=== PATIENT | female | born 1975 | race Caucasian/White ===

== ENCOUNTER → 2019-11-20 12:32 | Outpatient (BNVA) | payer OTHER, SELFPAY | PROVIDERS: Family Provider Family Medicine; PCP Family Medicine; Visit Provider Family Medicine | DX: R05 Cough (principal); R06.02 Shortness of breath; Z20.828 Contact with and (suspected) exposure to other viral communicable diseases | CPT/HCPCS: 87071; 87400; 87635; 87880 ==

== ENCOUNTER → 2020-03-09 13:26 | Outpatient (BNVA) | payer SELFPAY | PROVIDERS: Family Provider Family Medicine; PCP Family Medicine; Visit Provider Internal Medicine | DX: R50.9 Fever, unspecified (principal) | CPT/HCPCS: 87635 ==

== ENCOUNTER 2021-07-15 14:47 | Outpatient (CLI) | payer SELFPAY ==
--- NOTE | 2021-07-15 14:58 | XR_ITS ---
WS: [id number] LEFT KNEE: 2 VIEW(S) TECHNIQUE: AP and lateral. HISTORY: ACUTE PAIN OF LEFT KNEE COMPARISON: 11/20/2012 No fracture or dislocation. Mild narrowing of the patellofemoral joint space in the medial compartment and small osteophytes. Fra gmentation of the tibial tubercle is stable. No adjacent soft tissue edema. Small suprapatellar effusion. No soft tissue abnormality. XR/XR knee LT 1-2V [id number] IMPRESSION: 1. Mild osteoarthritis in the medial and patellofemoral compartments. 2. Small suprapatellar joint effusion.
== END 2021-07-15 14:48 | disposition home or self-care (01) ==
PROVIDERS: PCP Family Medicine; Visit Provider Family Medicine
DX: M17.12 Unilateral primary osteoarthritis, left knee (principal); M25.462 Effusion, left knee
CPT/HCPCS: 73560

== ENCOUNTER → 2021-08-12 10:41 | Outpatient (BNVA) | payer SELFPAY | PROVIDERS: PCP Family Medicine; Visit Provider Nurse Practitioner Family | DX: Z20.822 Contact with and (suspected) exposure to COVID-19 (principal) | CPT/HCPCS: 87635 ==

== ENCOUNTER → 2021-09-10 10:18 | Outpatient (BNVA) | payer SELFPAY | PROVIDERS: PCP Family Medicine; Visit Provider Nurse Practitioner Family | DX: Z20.822 Contact with and (suspected) exposure to COVID-19 (principal) | CPT/HCPCS: 87635 ==

== ENCOUNTER → 2021-09-21 09:58 | Outpatient (BNVA) | payer SELFPAY | PROVIDERS: PCP Family Medicine; Visit Provider Nurse Practitioner Family | DX: Z20.822 Contact with and (suspected) exposure to COVID-19 (principal) | CPT/HCPCS: 87635 ==

== ENCOUNTER → 2022-08-11 10:07 | Outpatient (BNVA) | payer MEDICAID, SELFPAY | PROVIDERS: PCP Family Medicine; Visit Provider Podiatrist Foot & Ankle Surgery | DX: E11.42 Type 2 diabetes mellitus with diabetic polyneuropathy (principal) | CPT/HCPCS: 36415; 83036 ==

== ENCOUNTER 2023-06-19 08:02 | Outpatient (CLI) | payer MEDICAID, SELFPAY ==
[2023-06-19 08:51] LABS: Alkaline Phosphatase 133 U/L (35-105); Anion Gap 11.1 (5-19); Aspartate Amino Transferase 24 U/L (0-32); Blood Urea Nitrogen 15 mg/dL (6-20); Calcium 8.8 mg/dL (8.5-10.5); Carbon Dioxide 31 mmol/L (22-29); Chloride 104 mmol/L (98-107); Free T4 Free Thyroxine 0.84 ng/dL (0.82-1.77); Globulin 2.7 g/dL (1.3-4.6); Glomerular Filtration Rate 89.7 mL/min (90-130); Glucose 102 mg/dL (65-115); Osmolality Calculated 295 mOsm/kg (285-295); Potassium 4.1 mmol/L (3.5-5.1); Sodium 142 mmol/L (136-145); T3 Free 3.1 PG/ML (2.0-4.4); Thyroid Stimulating Hormone 2.05 uIU/mL (0.27-4.20); Total Bilirubin 0.3 mg/dL (0.15-1.2); Total Protein 6.7 g/dL (6.6-8.7)
[2023-06-19 09:02] LABS: Alanine Aminotransferase 23 U/L (0-33)
[2023-06-19 10:45] LABS: 25 Hydroxy Vitamin D 16 ng/mL (30-100); Vitamin B12 331 pg/mL (232-1245)
[2023-06-19 10:46] LABS: Folate Level 6.8 ng/mL (4.8-37.3)
[2023-06-22 08:43] LABS: Methylmalonic Acid 540 nmol/L (87-318)
[2023-06-22 11:40] LABS: Carbamazepine Free 0.4 mcg/mL (1.0-3.0)
== END 2023-06-19 08:03 | disposition home or self-care (01) ==
PROVIDERS: PCP Family Medicine; Visit Provider Psychiatry & Neurology Neurology
DX: R56.9 Unspecified convulsions (principal)
CPT/HCPCS: 36415; 80053; 80157; 82306; 82607; 82746; 83735; 83921; 84439; 84443; 84481

== ENCOUNTER 2023-07-19 12:46 | Oncology outpatient (recurring) (ONCR) | payer MEDICAID, SELFPAY ==
[2023-07-19 14:20] LABS: Basophils % 0.3 %; Eosinophils # 0.2 10^3/uL (0.0-0.8); Eosinophils % 3.4 %; Hematocrit 40.3 % (36-47); Lymphocytes # 2.3 10^3/uL (0.8-4.8); Mean Corpuscular HGB Conc 31.3 g/dL (30-55); Mean Corpuscular Hemoglobin 27.3 pg (27-33); Mean Corpuscular Volume 87.2 fl (85-98); Mean Platelet Volume 10.2 fL (7.4-10.4); Monocytes # 0.4 10^3/uL (0.2-0.9); Monocytes % 5.8 %; Neutrophils # 3.82 10^3/uL (1.8-7.7); Neutrophils % 56.4 %; Nucleated Red Blood Cells % 0 %; Platelet Count 260 10^3/cmm (157-399); Red Blood Count 4.62 10^6/uL (3.85-5.65); Red Cell Distribution Width 16.2 % (12.1-15.1); White Blood Count 6.77 10^3/uL (3.29-11.43)
[2023-07-19 14:33] LABS: Alanine Aminotransferase 20 U/L (0-33); Albumin Level 3.7 g/dL (3.5-5.2); Alkaline Phosphatase 132 U/L (35-105); Anion Gap 14.1 (5-19); Aspartate Amino Transferase 19 U/L (0-32); Blood Urea Nitrogen 14 mg/dL (6-20); Calcium 8.6 mg/dL (8.5-10.5); Carbon Dioxide 28 mmol/L (22-29); Chloride 103 mmol/L (98-107); Ferritin 32 ng/mL (15-150); Globulin 2.8 g/dL (1.3-4.6); Glomerular Filtration Rate 89.7 mL/min (90-130); Glucose 82 mg/dL (65-115); Homocysteine 10.47; Iron 97 ug/dL (37-145); Osmolality Calculated 292 mOsm/kg (285-295); Percent Saturation 31.3 % (20-50); Potassium 4.1 mmol/L (3.5-5.1); Sodium 141 mmol/L (136-145); Total Bilirubin 0.2 mg/dL (0.15-1.2); Total Iron Binding Capacity 309 mcg/dl; Total Protein 6.5 g/dL (6.6-8.7); Unsaturated Iron Binding 212 ug/dL (112-347)
[2023-07-19 14:49] LABS: Vitamin B12 347 pg/mL (232-1245)
[2023-07-19 14:55] LABS: Folate Level 6.8 ng/mL (4.8-37.3)
[2023-07-22 07:40] LABS: Methylmalonic Acid 339 nmol/L (87-318)
== END 2023-08-13 23:59 | disposition home or self-care (01) ==
PROVIDERS: Internal Medicine Hematology & Oncology; PCP Family Medicine; Visit Provider Family Medicine
DX: D50.9 Iron deficiency anemia, unspecified (principal); E53.8 Deficiency of other specified B group vitamins; R56.9 Unspecified convulsions; E66.9 Obesity, unspecified; E11.9 Type 2 diabetes mellitus without complications; Z79.899 Other long term (current) drug therapy
CPT/HCPCS: 36415; 80053; 82607; 82728; 82746; 83090; 83540; 83550; 83921; 85025

== ENCOUNTER 2023-09-11 14:28 | Oncology outpatient (recurring) (ONCR) | payer MEDICAID, SELFPAY ==
[2023-09-11 15:47] LABS: Basophils % 0.2 %; Eosinophils # 0.2 10^3/uL (0.0-0.8); Eosinophils % 2.6 %; Hematocrit 38.8 % (36-47); Lymphocytes # 2.1 10^3/uL (0.8-4.8); Lymphocytes % 36.6 %; Mean Corpuscular HGB Conc 32.5 g/dL (30-55); Mean Corpuscular Hemoglobin 28.7 pg (27-33); Mean Corpuscular Volume 88.4 fl (85-98); Mean Platelet Volume 9.8 fL (7.4-10.4); Monocytes # 0.3 10^3/uL (0.2-0.9); Monocytes % 5.8 %; Neutrophils % 54.6 %; Nucleated Red Blood Cells % 0 %; Platelet Count 273 10^3/cmm (157-399); Red Blood Count 4.39 10^6/uL (3.85-5.65); Red Cell Distribution Width 13.2 % (12.1-15.1); White Blood Count 5.85 10^3/uL (3.29-11.43)
[2023-09-11 16:36] LABS: Alanine Aminotransferase 24 U/L (0-33); Albumin Level 3.8 g/dL (3.5-5.2); Alkaline Phosphatase 102 U/L (35-105); Anion Gap 11.8 (5-19); Aspartate Amino Transferase 21 U/L (0-32); Blood Urea Nitrogen 14 mg/dL (6-20); Calcium 8.9 mg/dL (8.5-10.5); Carbon Dioxide 29 mmol/L (22-29); Chloride 104 mmol/L (98-107); Glomerular Filtration Rate 107.2 mL/min (90-130); Glucose 81 mg/dL (65-115); Osmolality Calculated 292 mOsm/kg (285-295); Potassium 3.8 mmol/L (3.5-5.1); Sodium 141 mmol/L (136-145); Total Bilirubin 0.2 mg/dL (0.15-1.2); Total Protein 6.8 g/dL (6.6-8.7)
[2023-09-11 16:47] LABS: 25 Hydroxy Vitamin D 42 ng/mL (30-100)
[2023-09-14 04:00] LABS: Parietal Cell Antibody NEGATIVE (NEGATIVE)
[2023-09-15 16:00] LABS: Intrinsic Factor Blocking AB NEGATIVE
== END 2023-09-13 23:59 | disposition home or self-care (01) ==
PROVIDERS: Nurse Practitioner Family; PCP Family Medicine; Visit Provider Family Medicine
DX: E55.9 Vitamin D deficiency, unspecified (principal); I10 Essential (primary) hypertension; E53.8 Deficiency of other specified B group vitamins
CPT/HCPCS: 36415; 80053; 82306; 85025; 86255; 86340

== ENCOUNTER 2023-09-14 09:11 | Outpatient (CLI) | payer MEDICAID, SELFPAY ==
--- NOTE | 2023-09-14 09:27 | MM_ITS ---
WS: [id number] BILATERAL 3D TOMOSYNTHESIS DIGITAL DIAGNOSTIC MAMMOGRAPHY WITH CAD CLINICAL INFORMATION: BR MASS HISTORY: Bilateral breast pain. ExtraExtra sore COMPARISON: 2009 TECHNIQUE: Bilateral CC, MLO, and ML views. FINDINGS: Scattered fibroglandular densities bilaterally. No suspicious abnormalities in the areas of palpable concern. Ultrasound is pending. A few tiny incidental punctate calcifications. ULTRASOUND BREAST BILATERAL TECHNIQUE: Ultrasound bilateral breast focused area of concern. CLINICAL INFORMATION: BR MASS COMPARISON: None. FINDINGS: Ultrasound bilateral breast all 4 quadrants and areas of concern. RIGHT BREAST: No suspicious abnormalities in the RIGHT breast in the areas of concern. LEFT BREAST: No suspicious abnormalities in the LEFT breast in the areas of concern. IMPRESSION: MM/[place] [id number] BI-RADS: 2-Benign FOLLOW UP: 1 Year Follow-up Recommend return to annual screening mammography.
--- NOTE | 2023-09-14 10:26 | US_ITS ---
WS: [id number] BILATERAL 3D TOMOSYNTHESIS DIGITAL DIAGNOSTIC MAMMOGRAPHY WITH CAD CLINICAL INFORMATION: BR MASS HISTORY: Bilateral breast pain. ExtraExtra sore COMPARISON: 2009 TECHNIQUE: Bilateral CC, MLO, and ML views. FINDINGS: Scattered fibroglandular densities bilaterally. No suspicious abnormalities in the areas of palpable concern. Ultrasound is pending. A few tiny incidental punctate calcifications. ULTRASOUND BREAST BILATERAL TECHNIQUE: Ultrasound bilateral breast focused area of concern. CLINICAL INFORMATION: BR MASS COMPARISON: None. FINDINGS: Ultrasound bilateral breast all 4 quadrants and areas of concern. RIGHT BREAST: No suspicious abnormalities in the RIGHT breast in the areas of concern. LEFT BREAST: No suspicious abnormalities in the LEFT breast in the areas of concern. IMPRESSION: US/US breast BI limited* [id number] BI-RADS: 2-Benign FOLLOW UP: 1 Year Follow-up Recommend return to annual screening mammography.
== END 2023-09-14 09:12 | disposition home or self-care (01) ==
LOC: RAD 09:11
PROVIDERS: PCP Family Medicine; Visit Provider Family Medicine
DX: N63.20 Unspecified lump in the left breast, unspecified quadrant (principal); N64.4 Mastodynia; R92.323 Mammographic fibroglandular density, bilateral breasts
CPT/HCPCS: 76642; 77062; G0279

== ENCOUNTER → 2023-11-29 16:13 | Outpatient (BNVA) | payer MEDICAID, SELFPAY | PROVIDERS: PCP Family Medicine; Visit Provider Nurse Practitioner | DX: J02.9 Acute pharyngitis, unspecified (principal) | CPT/HCPCS: 87071; 87880 ==

== ENCOUNTER → 2024-01-22 14:30 | Outpatient (BNVA) | payer MEDICAID, SELFPAY | PROVIDERS: PCP Family Medicine; Visit Provider Registered Nurse Neonatal Intensive Care | DX: J02.9 Acute pharyngitis, unspecified (principal); R50.9 Fever, unspecified; J06.9 Acute upper respiratory infection, unspecified; H66.002 Acute suppurative otitis media without spontaneous rupture of ear drum, left ear; N89.8 Other specified noninflammatory disorders of vagina | CPT/HCPCS: 87426; 87880 ==

== ENCOUNTER 2024-12-25 13:14 | Emergency (ER) | payer MEDICAID, SELFPAY ==
[2024-12-25 13:26] VITALS: BP 176/102; PULSE 106; RESP 16; TEMP 37; O2SAT 98; BMI 47.0
--- NOTE | 2024-12-25 13:40 | CT_ITS ---
WS: [id number] CT ABDOMEN AND PELVIS WITH CONTRAST HISTORY: abd pain, history of bowel resection. TECHNIQUE: Imaging performed of the abdomen and pelvis with IV contrast. Single phase imaging of the abdomen. Coronal and sagittal reformats are submitted. All CT scans at [facility] use at least one of these dose optimization techniques: automated exposure control; mA and/or kV adjustment per patient size (includes targeted exams where dose is matched to clinical indication); or iterative reconstruction. IV CONTRAST: Omnipaque 350; 100 mL IV. Oral contrast: No DLP: 1404.29 mGy.cm COMPARISON: 05/25/2015 Lower thorax: Lung bases are clear. Heart is normal size. Small hiatal hernia. Liver/biliary system: Normal size liver. Mild central intrahepatic duct dilatation similar to the prior study. Numerous splenic varices. Gallbladder: Prior cholecystectomy. Stable dilated common bile duct measuring up to 16 mm. Similar to the study from 2014. Pancreas: Mild pancreatic atrophy. Spleen: Normal size spleen. No mass or infarct. Adrenal glands: Normal. Right kidney: Normal. Left kidney: Normal. Aorta: Normal. Lymphadenopathy: None. Free fluid: None. GI tract: Status post gastric bypass. No outlet obstruction identified. No small bowel obstruction. Normal colon. No evidence for appendicitis. Abdominal wall: Unremarkable abdominal wall. No hernia. Pelvis: No free fluid or adenopathy within the pelvis. Prior hysterectomy. Bones: Unremarkable. CT/CT abdomen pelvis w con* [id number] IMPRESSION: 1. No acute abdominal or pelvic abnormalities. 2. No GI tract obstruction or herniation. 3. Prior gastric bypass. 4. Prior cholecystectomy with stable common bile duct dilatation. 5. No renal obstruction.
--- NOTE | 2024-12-25 13:43 | ED_ITS ---
HPI - Abdominal Pain 2 General: Chief Complaint: Abdominal Pain Stated Complaint: upper abdominal pain Time Seen by Provider: 12/25/24 13:25 Source: patient Mode of arrival: ambulatory Limitations: no limitations History of Present Illness: 49-year-old female history [place] byp ass in the past she has had an internal hernia she stated 8 years ago from this and had to have 6 inches of her bowel removed states she has pain at times but is had increasing pain over the last 3 days with vomiting. Pain is sharp in nature rates it an 8 out of 10 currently denies any diarrhea denies any fevers Associated Symptoms: Reports nausea and vomiting; Denies chills, diarrhea, dysuria and fever(s) Related Data Home Medications ?Medication ?Instructions ?Recorded ?Confirmed loratadine 10 mg tablet (Allergy 10 mg PO DAILY 12/25/24 Relief (loratadine)) hydrochlorothiazide 12.5 mg capsule 12.5 mg PO DAILY 0 12/25/24 12/25/24 lisinopril 20 mg tablet 20 mg PO DAILY 12/25/2412/12 Previous Rx's ?Medication ?Instructions ?Recorded blood sugar diagnostic (Blood #200 ea 08/21/23 Glucose Test strips) lancets #200 ea 08/21/23 buspirone 15 mg tablet 15 mg PO TID #270 tabs 09/13 blood-glucose meter (OneTouch #1 ea 12/08/23 Ultra2 Meter) albuterol sulfate 90 mcg/actuation 2 puff inhalation D AILY PRN 09/30/24 aerosol inhaler shortness of breath or wheez ing #8.5 grams carbamazepine 200 mg 200 mg PO QID #120 caps 09/15 03/07 capsule,extended release [id number] bupropion HCl 300 mg 24 hr tablet, 300 mg PO QAM #90 t abs 10/29/24 extended release (Wellbutrin XL) pantoprazole 40 mg tablet,delayed 40 mg PO BID #60 tab s 10/29/24 release (Protonix) sucralfate 1 gram tablet (Carafate) 1 g PO BID #60 tab s 10/29/24 gabapentin 300 mg capsule 300 mg PO TID #270 caps 10/12 05/08 hydrocodone 5 mg-acetaminophen 325 1 tab PO Q6H PRN pa in #14 tabs 12/25/24 mg tablet ondansetron 4 mg disintegrating 4 mg PO Q6H PRN nausea and 12/25/24 tablet vomiting #14 tabs Allergies Allergy/AdvReac Type Severity Reaction Status Date / Time latex Allergy Intermediate ALGY-Rash Verified 12/25/24 13:26 aspirin Allergy RASH Verified 12/25/24 13:26 codeine Allergy RASH Verified 12/25/24 13:26 metronidazole (From Flagyl) Allergy RASH Verified 12/25/24 13:26 Penicillins Allergy RASH Verified 12/25/24 13:26 Review of Systems 2 Const: Denies: fever(s), chills, body aches or change in appetite ENMT: Denies: throat pain or dental pain Card: Denies: chest pain Resp: Denies: dyspnea GI: Reports: abdominal pain, nausea and vomiting; Denies: diarrhea : Denies: dysuria Musc: Denies: neck pain or back pain Skin/Breast: Denies: rash Neuro: Denies: headache(s) PFSH ED 2 PFSH: Medical History (Updated 12/25/24 @ 14:42 by Mango Giles MD) Influenza-like syndrome Sensation disturbance of skin Head ache Asthma Seasonal allergies HTN (hypertension) Obesity B12 deficiency Surgical History (Updated 12/19/23 @ 16:03 by Mor Garcia MD) Hx of colonoscopy 1999 History of gastric bypass History of hernia repair x4 History of x4 History of hysterectomy History of cholecystectomy History of foot surgery History of resection of small bowel perforated small bowel Family History Grandfather Cancer Maternal-skin Family/Other Cancer Niece-brain tumor Other Aneurysm Bleeding disorder Diabetes Hypertension Lung disease Psychiatric illness Thyroid disease Denies family history of Liver disease CAD (coronary artery disease) Autoimmune disease Dementia Hyperlipidemia Chronic kidney disease (CKD) Stroke Social History Smoking and tobacco/nicotine status: never used tobacco/nicotine Alcohol intake: never Substance/Drug Use: never Lives independently: Yes Marital status: Number of children: 3 Current occupational status: employed Current occupation: volunteer manager Physical Exam 2 Const: COMMON NORMALS: patient oriented x3 HENMT: COMMON NORMALS: normocephalic and atraumatic HEAD & SCALP: n ormocephalic and atraumatic Eye: COMMON NORMALS: Equal, round and reactive pupils present and EOMs intact bilaterally PUPIL: Yes Equal, round and reactive pupils present Neck/C-Spine: COMMON NORMALS: full ROM and supple Chest: COMMONS NORMALS: normal inspection of the chest and normal palpation of entire chest wall Resp: COMMON NORMALS: normal respiratory effort, No retractions, No use of accessory muscles and clear to auscultation bilaterally AUSCULTATION: clear to auscultation bilaterally Cardio: COMMON NORMALS: regular rate, regular rhythm and No murmurs present (Cardio) RATE: regular rate RHYTHM: regular rhythm GI: COMMON NORMALS: Normal to inspection, nondistended, normoactive bowel sounds present, Soft to palpation, non-tender and no masses PALPATION: Yes Soft to palpation Extremity: COMMON NORMALS: normal to inspection and full ROM Neuro: COMMON NORMALS: patient oriented x3, moves all extremities and no focal motor deficits Psych: COMMON NORMALS: mental status grossly normal, Normal thought process present and cooperative THOUGHT PROCESS: Normal thought process present Skin: COMMON NORMALS: no rashes or lesions noted and no wounds GENERAL SKIN EXAM: no rashes or lesions noted Course 2 Vital Signs: Vital signs: Vital Signs Temperature 98.6 F 12/25/24 13:26 Pulse Rate 106 H 12/25/24 13:26 Respiratory Rate 16 12/25/24 13:26 Blood Pressure 176/102 12/25/24 13:26 Pulse Oximetry 98 12/25/24 13:26 Oxygen Delivery Me thod Room Air 12/25/24 13:26 MDM - Abdominal Pain Medical Decision Making Patient presents for abdominal pain her pain is much improved exam at discharge is benign CT scan blood works normal she stable for discharge follow-up with PCP return if worsening. Medical Records I reviewed the patient's medical records. Lab Data I reviewed the patient's lab results. 12/25/24 13:31 12/25/24 13:31 Labs/Radiology: Radiology Impressions Abdomen/Pelvis CT 12/25/24 13:40 IMPRESSION: 1. No acute abdominal or pelvic abnormalities. 2. No GI tract obstruction or herniation. 3. Prior gastric bypass. 4. Prior cholecystectomy with stable common bile duct dilatation. 5. No renal obstruction. Laboratory Results WBC 11.71 10^3/uL (3.29-11.43) H 12/25/24 13:31 RBC 4.60 10^6/uL (3.85-5.65) 12/25/24 13:31 Hgb 12.90 g/dL (11.27-16.99) 12/25/24 13:31 Hct 42.9 % (36-47) 12/25/24 13:31 MCV 93.3 fl (85-98) 12/25/24 13:31 MCH 28.0 pg (27-33) 12/25/24 13:31 MCHC 30.1 g/dL (30-55) 12/25/24 13:31 RDW 12.8 % (12.1-15.1) 12/25/24 13:31 Plt Count 222 10^3/cmm (157-399) 12/25/24 13:31 MPV 10.2 fL (7.4-10.4) 12/25/24 13:31 Neut % (Auto) 71.0 % 12/25/24 13:31 Lymph % (Auto) 23.8 % 12/25/24 13:31 Atkinson % (Auto) 4.1 % 12/25/24 13:31 Eos % (Auto) 0.6 % 12/25/24 13:31 Baso % (Auto) 0.2 % 12/25/24 13:31 Neut # (Auto) 8.31 10^3/uL (1.8-7.7) H 12/25/24 13:31 Lymph # (Auto) 2.8 10^3/uL (0.8-4.8) 12/25/24 13:31 Atkinson # (Auto) 0.5 10^3/uL (0.2-0.9) 12/25/24 13:31 Eos # (Auto) 0.1 10^3/uL (0.0-0.8) 12/25/24 13:31 Baso # (Auto) 0.0 10^3/uL (0.0-0.1) 12/25/24 13:31 Nucleated RBC % (auto) 0 % 12/25/24 13:31 Nucleated RBCs # 0.0 /100WBC 12/25/24 13:31 Sodium 138 mmol/L (136-145) 12/25/24 13:31 Potassium 3.4 mmol/L (3.5-5.1) L 12/25/24 13:31 Chloride 102 mmol/L (98-107) 12/25/24 13:31 Carbon Dioxide 21 mmol/L (22-29) L 12/25/24 13:31 Anion Gap 18.4 (5-19) 12/25/24 13:31 BUN 10 mg/dL (6-20) 12/25/24 13:31 Creatinine 0.7 mg/dL (0.5-0.9) 12/25/24 13:31 GFR Calculation 89.3 mL/min (90-130) L 12/25/24 13:31 Glucose 101 mg/dL (65-115) 12/25/24 13:31 Calculated Osmolality 285 mOsm/kg (285-295) 12/25/24 13:31 Calcium 8.6 mg/dL (8.5-10.5) 12/25/24 13:31 Total Bilirubin 0.4 mg/dL (0.15-1.2) 12/25/24 13:31 AST 50 U/L (0-32) H 12/25/24 13:31 ALT 21 U/L (0-33) 12/25/24 13:31 Alkaline Phosphatase 167 U/L (35-105) H 12/25/24 13:31 Total Protein 7.2 g/dL (6.6-8.7) 12/25/24 13:31 Albumin 3.7 g/dL (3.5-5.2) 12/25/24 13:31 Globulin 3.5 g/dL (1.3-4.6) 12/25/24 13:31 Lipase 164 U/L (13-60) H 12/25/24 13:31 Urine Color Yellow (Yellow) 12/25/24 13:51 Urine Appearance Clear (CLEAR) 12/25/24 13:51 Urine pH 6.5 (5-7) 12/25/24 13:51 Ur Specific [place] 1.013 (1.005-1.030) 12/25/24 13:51 Urine Protein Negative (Negative) 12/25/24 13:51 Urine Glucose (UA) Negative (Normal) 12/25/24 13:51 Urine Ketones Negative (Negative) 12/25/24 13:51 Urine Blood Negative (Negative) 12/25/24 13:51 Urine Nitrate Negative (Negative) 12/25/24 13:51 Urine Bilirubin Negative (Negative) 12/25/24 13:51 Urine Urobilinogen 1.0 mg/dL (Negative) 12/25/24 13:51 Ur Leukocyte Esterase Negative (Negative) 12/25/24 13:51 Urine RBC 0-2 /hpf (0-2) 12/25/24 13:51 Urine WBC 0-5 /hpf (0-5) 12/25/24 13:51 Ur Squamous Epith Cells 0-5 /hpf (0-5) 12/25/24 13:51 Amorphous Sediment Not Reportable 12/25/24 13:51 Urine Bacteria None seen /hpf (NONE) 12/25/24 13:51 Hyaline Casts 0-4 /lpf H 12/25/24 13:51 All radiology interpretation(s) finalized by discharge Discharge Plan Discharge Patient Disposition: Home Clinical Impression: Abdominal pain Condition: Stable Prescriptions: New hydrocodone-acetaminophen 5-325 mg tablet 1 tab PO Q6H PRN (Reason: pain) Qty: 14 0RF ondansetron 4 mg tablet,disintegrating 4 mg PO Q6H PRN (Reason: nausea and vomiting) Qty: 14 0RF No Action buspirone 15 mg tablet 15 mg PO TID Qty: 270 1RF loratadine [Allergy Relief (loratadine)] 10 mg tablet 10 mg PO DAILY (DME) Blood Glucose Test Strip See Rx Instructions .MEDSUPPLY Qty: 200 12RF Rx Instructions: Use as directed with glucometer to check blood sugar (DME) lancets Misc See Rx Instructions .MEDSUPPLY Qty: 200 12RF Rx Instructions: Use as directed to prick skin for blood sugar checks (DME) blood-glucose meter [OneTouch Ultra2 Meter] Misc See Rx Instructions .ROUTE .COMPLEX Qty: 1 0RF Dose Instruction: USE DIRECTED FOR CHECKING BLOOD SUGAR Rx Instructions: USE DIRECTED FOR CHECKING BLOOD SUGAR albuterol sulfate 90 mcg/actuation HFA aerosol inhaler 2 puff inhalation DAILY PRN (Reason: shortness of breath or wheezing) Qty: 8.5 2RF carbamazepine 200 mg capsule, ER multiphase 12 hr 200 mg PO QID Qty: 120 0RF sucralfate [Carafate] 1 gram tablet 1 g PO BID Qty: 60 0RF pantoprazole [Protonix] 40 mg tablet,delayed release (DR/EC) 40 mg PO BID Qty: 60 0RF bupropion HCl [Wellbutrin XL] 300 mg tablet extended release 24 hr 300 mg PO QAM Qty: 90 0RF gabapentin 300 mg capsule 300 mg PO TID Qty: 270 0RF lisinopril 20 mg tablet 20 mg PO DAILY hydrochlorothiazide 12.5 mg capsule 12.5 mg PO DAILY Discharge Orders: Discharge ED (Routine); Ordered 12/25/24 Ordered By: Mango Giles Referrals: Antwon Cisneros MD [Primary Care Provider, Family Practice] - 4-7 days Discharge Diet: Advance as tolerated Discharge Activity: Resume usual activity Patient Instructions: Abdominal Pain (ED) Print Language: Libyan Coding Level of Care Code ED Drive Away Driver for Hermila Alvarez
[2024-12-25] MEDS: iohexol 350 mg/mL 500 mL Btl (per mL) IV (13:54)
--- NOTE | 2024-12-25 13:54 | PC.PHAR ---
Protonix, Carafate and Tegretol are past due to fill but pt states she is still taking them. Last fill dates put in pharmacy notes.
[2024-12-25 14:00] LABS: Basophils % 0.2 %; Eosinophils # 0.1 10^3/uL (0.0-0.8); Eosinophils % 0.6 %; Hematocrit 42.9 % (36-47); Lymphocytes # 2.8 10^3/uL (0.8-4.8); Lymphocytes % 23.8 %; Mean Corpuscular HGB Conc 30.1 g/dL (30-55); Mean Corpuscular Volume 93.3 fl (85-98); Mean Platelet Volume 10.2 fL (7.4-10.4); Monocytes # 0.5 10^3/uL (0.2-0.9); Monocytes % 4.1 %; Neutrophils # 8.31 10^3/uL (1.8-7.7); Nucleated Red Blood Cells % 0 %; Platelet Count 222 10^3/cmm (157-399); Red Cell Distribution Width 12.8 % (12.1-15.1); White Blood Count 11.71 10^3/uL (3.29-11.43)
[2024-12-25 14:04] LABS: Bilirubin Urine Negative (Negative); Blood Urine Negative (Negative); Glucose Urine UA Negative (Normal); Ketones Urine Negative (Negative); Leukocyte Esterase Urine Negative (Negative); Nitrate Urine Negative (Negative); Protein Urine Negative (Negative); Specific Gravity, Urine 1.013 (1.005-1.030); Urine Appearance Clear (CLEAR); Urine Color Yellow (Yellow); pH Urine 6.5 (5-7)
[2024-12-25] MEDS: ondansetron 2 mg/ML SDV 2 mL 4 MG IVP (14:05)
[2024-12-25] MEDS: morphine 4 mg/mL SDV 1 mL IVP (14:06)
[2024-12-25 14:09] LABS: Add Urine Microscopic? YES; Bacteria Urine None Seen /hpf; Hyaline Casts Urine 0-4 /lpf; RBC Urine 0-2 /hpf (0-2); Squamous Epithelial Cell Urine 0-5 /hpf (0-5); WBC Urine 0-5 /hpf (0-5)
[2024-12-25 14:21] LABS: Alanine Aminotransferase 21 U/L (0-33); Albumin Level 3.7 g/dL (3.5-5.2); Alkaline Phosphatase 167 U/L (35-105); Blood Urea Nitrogen 10 mg/dL (6-20); Calcium 8.6 mg/dL (8.5-10.5); Carbon Dioxide 21 mmol/L (22-29); Chloride 102 mmol/L (98-107); Creatinine Clr Calc Pharmacy 141.8014; Globulin 3.5 g/dL (1.3-4.6); Glomerular Filtration Rate 89.3 mL/min (90-130); Glucose 101 mg/dL (65-115); Lipase 164 U/L (13-60); Osmolality Calculated 285 mOsm/kg (285-295); Sodium 138 mmol/L (136-145); Total Bilirubin 0.4 mg/dL (0.15-1.2); Total Protein 7.2 g/dL (6.6-8.7)
[2024-12-25 14:25] LABS: Anion Gap 18.4 (5-19); Aspartate Amino Transferase 50 U/L (0-32); Potassium 3.4 mmol/L (3.5-5.1)
[2024-12-25 14:49] VITALS: PULSE 95; O2SAT 98
[2024-12-25 14:54] VITALS: BP 171/125; PULSE 97; O2SAT 91
[2024-12-25 15:36] LABS: Add Urine Culture? No
== END 2024-12-25 15:01 | disposition home or self-care (01) ==
PROVIDERS: Emergency Provider Emergency Medicine; PCP Family Medicine
DX: R10.9 Unspecified abdominal pain (principal); I10 Essential (primary) hypertension
CPT/HCPCS: 36415; 74177; 80053; 81001; 83690; 85025; 96374; 96375; 99285; J2270; J2405

== ENCOUNTER 2025-03-14 21:06 | Emergency (ER) | payer MEDICAID, SELFPAY ==
[2025-03-14 21:08] VITALS: BP 177/124; PULSE 86; RESP 16; TEMP 36.9; O2SAT 97; BMI 43.8
--- NOTE | 2025-03-14 21:31 | W.ED.BACK ---
HPI - Back Pain/Injury General: Chief Complaint: Back Pain/Injury Stated Complaint: right hip/leg pain to foot Time Seen by Provider: 03/14/25 21:14 History of Present Illness: Patient is a 50-year-old female presenting to the ED with complaints of right-sided buttock pain radiating down the right leg for approximately 1.5 weeks. The pain has been progressively worsening, becoming particularly severe tonight, prompting the ED visit. Patient describes the pain as starting in the right buttock area and radiating down the entire leg. She reports associated numbness in her foot. The patient has attempted conservative management at home including Aleve, Tylenol, stretching exercises, hot patches, and a TENS unit without significant relief. She denies any previous episodes of similar pain of this severity. Patient reports difficulty sleeping due to pain, requiring multiple pillows for positioning. She acknowledges a history of lifting activities that may have contributed to her condition. No history of trauma was reported. Patient denies urinary incontinence, retention, or saddle anesthesia. Related Data Home Medications ?Medication ?Instructions ?Recorded ?Confirmed loratadine 10 mg tablet (Allergy 10 mg PO DAILY 08/11/22 12/25/24 Relief (loratadine)) hydrochlorothiazide 12.5 mg capsule 12.5 mg PO DAILY 12/25/24 12/25/24 lisinopril 20 mg tablet 20 mg PO DAILY 12/25/24 12/25/24 Previous Rx's ?Medication ?Instructions ?Recorded blood sugar diagnostic (Blood #200 ea 08/21/23 Glucose Test strips) lancets #200 ea 08/21/23 buspirone 15 mg tablet 15 mg PO TID #270 tabs 09/13/23 blood-glucose meter (OneTouch #1 ea 12/08/23 Ultra2 Meter) albuterol sulfate 90 mcg/actuation 2 puff inhalation DAILY PRN 09/30/24 aerosol inhaler shortness of breath or wheezing #8.5 grams carbamazepine 200 mg 200 mg PO QID #120 caps 10/10/24 capsule,extended release [id number] bupropion HCl 300 mg 24 hr tablet, 300 mg PO QAM #90 tabs 10/29/24 extended release (Wellbutrin XL) pantoprazole 40 mg tablet,delayed 40 mg PO BID #60 tabs 10/29/24 release (Protonix) sucralfate 1 gram tablet (Carafate) 1 g PO BID #60 tabs 10/29/24 hydrocodone 5 mg-acetaminophen 325 1 tab PO Q6H PRN pain #14 tabs 12/25/24 mg tablet ondansetron 4 mg disintegrating 4 mg PO Q6H PRN nausea and 12/25/24 tablet vomiting #14 tabs gabapentin 300 mg capsule 300 mg PO TID #270 caps 02/19/25 diazepam 5 mg tablet (Valium) 5 mg PO TID PRN muscle spasm #20 03/14/25 tabs Allergies Allergy/AdvReac Type Severity Reaction Status Date / Time latex Allergy Intermediate ALGY-Rash Verified 03/14/25 21:13 aspirin Allergy RASH Verified 03/14/25 21:13 codeine Allergy RASH Verified 03/14/25 21:13 metronidazole (From Flagyl) Allergy RASH Verified 03/14/25 21:13 Penicillins Allergy RASH Verified 03/14/25 21:13 PFSH ED PFSH: Medical History (Updated 03/14/25 @ 21:32 by Claudio Tapia MD) Influenza-like syndrome Sensation disturbance of skin Head ache Asthma Seasonal allergies HTN (hypertension) Obesity B12 deficiency Surgical History (Updated 12/19/23 @ 16:03 by Mor Garcia MD) Hx of colonoscopy 1999 History of gastric bypass History of hernia repair x4 History of x4 History of hysterectomy History of cholecystectomy History of foot surgery History of resection of small bowel perforated small bowel Family History Grandfather Cancer Maternal-skin Family/Other Cancer Niece-brain tumor Other Aneurysm Bleeding disorder Diabetes Hypertension Lung disease Psychiatric illness Thyroid disease Denies family history of Liver disease CAD (coronary artery disease) Autoimmune disease Dementia Hyperlipidemia Chronic kidney disease (CKD) Stroke Social History Smoking and tobacco/nicotine status: never used tobacco/nicotine Alcohol intake: never Substance/Drug Use: never Lives independently: Yes Marital status: Number of children: 3 Current occupational status: employed Current occupation: nursing services manager Physical Exam Narrative: EXAM NARRATIVE: General: Alert, in moderate distress due to pain HEENT: Head normocephalic and atraumatic. Mucous membranes moist. Neck: Supple Respiratory: No increased work of breathing, no wheezing Cardiac: Regular rate and rhythm, 2+ pulses in all extremities Abdomen: Soft, non-distended, no rebound or guarding Musculoskeletal: Tenderness noted in right buttock region. Pain with movement of right lower extremity. Neurological: Cranial nerves grossly intact, no focal motor deficits noted. Sensory deficit reported in right foot with numbness. Pain with straight leg raise on right side consistent with sciatica. Course Vital Signs: Vital signs: Vital Signs Temperature 98.5 F 03/14/25 21:08 Pulse Rate 86 03/14/25 21:08 Respiratory Rate 16 03/14/25 21:08 Blood Pressure 177/124 03/14/25 21:08 Pulse Oximetry 97 03/14/25 21:08 Oxygen Delivery Me thod Room Air 03/14/25 21:08 MDM - Back Pain/Injury Medical Decision Making ROS: Constitutional: Denies fever, chills, or weight changes. Musculoskeletal: Positive for right buttock pain radiating down the right leg. Reports right foot numbness. Neurological: Positive for right lower extremity radicular pain and paresthesia. Denies weakness, saddle anesthesia, or bowel/bladder dysfunction. All other systems reviewed and negative. MEDICATIONS AND ALLERGIES: Meds: Aleve and Tylenol as needed for pain Allergies: Possible allergy to an unidentified pain medication that caused hives (patient unable to recall specific name but states it contained a 'T' and 'Y' in the name) PAST HISTORICAL DATA: PMH: History of significant weight loss (previously weighed approximately 400 pounds) PSH: None reported Social: No alcohol, tobacco, or drug use reported INITIAL IMPRESSION AND PLAN: Given the history and presentation, the primary working diagnosis is right-sided sciatica with radicular pain. Additional considerations include lumbar disc herniation, spinal stenosis, and piriformis syndrome. Based on this initial impression I will order: 1. Toradol (ketorolac) injection for anti-inflammatory effect 2. Decadron (dexamethasone) injection for anti-inflammatory effect 3. Prescription for Valium (diazepam) for muscle relaxation 4. Continued use of Tylenol and NSAIDs for pain management 5. Patient education regarding ice/heat therapy and stretching exercises CONSIDERED BUT NOT PERFORMED: MRI of lumbar spine CONSIDERED but NOT DONE due to acute presentation and appropriateness for outpatient follow-up with primary care provider. Narcotic pain medications CONSIDERED but NOT DONE as non-narcotic options were deemed appropriate for initial management. OTC medications/interventions recommended included: alternating ice and heat therapy (15 minutes on/off), continued use of Tylenol and NSAIDs as directed, and continuation of gentle stretching exercises for sciatica. FINAL IMPRESSION: Based on all the above, my clinical impression is most compatible with right-sided sciatica with radicular pain, likely due to lumbar disc herniation or spinal stenosis. The clinical picture is not currently suggestive of cauda equina syndrome, spinal fracture, or spinal abscess. Although other conditions were also considered, they were deemed unlikely based on the clinical information available. CLINICAL DISPOSITION: The patient's current condition is stable in my estimation and the most appropriate and indicated disposition at this time is discharge home with medications and outpatient follow-up. The patient is safe for discharge home as she demonstrates no signs of cauda equina syndrome (no saddle anesthesia, no urinary incontinence or retention, and no lower extremity weakness), has adequate pain control with the administered medications, and has a clear understanding of follow-up instructions. Her symptoms, while uncomfortable, can be appropriately managed as an outpatient with the prescribed medications and conservative measures. The patient has been counseled on red flag symptoms that would warrant immediate return to the ED. RISK STRATIFICATION AND CLINICAL DECISION RULES APPLIED: Red flags for cauda equina syndrome were assessed and not present (no saddle anesthesia, no urinary retention or incontinence, no bilateral leg weakness or bowel incontinence). The absence of these red flags indicates low risk for emergent spinal pathology requiring immediate surgical intervention, supporting outpatient management. CASE SUMMARY: 50-year-old female with no significant past medical history presented with 1.5 weeks of progressively worsening right-sided buttock pain radiating down the right leg, consistent with sciatica. Patient had attempted conservative management at home without relief. Physical examination revealed tenderness in the right buttock region with pain radiating down the right leg and associated foot numbness. No signs of cauda equina syndrome were present. Patient was treated with Toradol and Decadron injections in the ED with improvement in symptoms. She was discharged home with a prescription for Valium, instructions to continue Tylenol and NSAIDs, apply ice/heat therapy, perform gentle stretching exercises, and follow up with her primary care provider for consideration of physical therapy and possible MRI of the lumbar spine. No radiology studies performed this visit Discharge Plan Discharge Patient Disposition: Home Clinical Impression: Sciatica Condition: Stable Prescriptions: New diazepam [Valium] 5 mg tablet 5 mg PO TID PRN (Reason: muscle spasm) Qty: 20 0RF No Action buspirone 15 mg tablet 15 mg PO TID Qty: 270 1RF loratadine [Allergy Relief (loratadine)] 10 mg tablet 10 mg PO DAILY (DME) Blood Glucose Test Strip See Rx Instructions .MEDSUPPLY Qty: 200 12RF Rx Instructions: Use as directed with glucometer to check blood sugar (DME) lancets Misc See Rx Instructions .MEDSUPPLY Qty: 200 12RF Rx Instructions: Use as directed to prick skin for blood sugar checks (DME) blood-glucose meter [OneTouch Ultra2 Meter] Misc See Rx Instructions .ROUTE .COMPLEX Qty: 1 0RF Dose Instruction: USE DIRECTED FOR CHECKING BLOOD SUGAR Rx Instructions: USE DIRECTED FOR CHECKING BLOOD SUGAR albuterol sulfate 90 mcg/actuation HFA aerosol inhaler 2 puff inhalation DAILY PRN (Reason: shortness of breath or wheezing) Qty: 8.5 2RF carbamazepine 200 mg capsule, ER multiphase 12 hr 200 mg PO QID Qty: 120 0RF sucralfate [Carafate] 1 gram tablet 1 g PO BID Qty: 60 0RF pantoprazole [Protonix] 40 mg tablet,delayed release (DR/EC) 40 mg PO BID Qty: 60 0RF bupropion HCl [Wellbutrin XL] 300 mg tablet extended release 24 hr 300 mg PO QAM Qty: 90 0RF gabapentin 300 mg capsule 300 mg PO TID Qty: 270 0RF lisinopril 20 mg tablet 20 mg PO DAILY hydrochlorothiazide 12.5 mg capsule 12.5 mg PO DAILY hydrocodone-acetaminophen 5-325 mg tablet 1 tab PO Q6H PRN (Reason: pain) Qty: 14 0RF ondansetron 4 mg tablet,disintegrating 4 mg PO Q6H PRN (Reason: nausea and vomiting) Qty: 14 0RF Discharge Orders: Discharge ED (Routine); Ordered 03/14/25 Ordered By: Claudio Tapia Referrals: Antwon Cisneros MD [Primary Care Provider, Family Practice] Patient Instructions: Sciatica (ED), Opioid Safety, Pain Management, Patient Portal & Dayo Instructions Activity Restrictions/Additional Instructions: MEDICATIONS: 1. Valium (diazepam) - Take as prescribed for muscle relaxation 2. Continue Tylenol (acetaminophen) and Aleve (naproxen) as directed for pain HOME CARE INSTRUCTIONS: 1. Rest and avoid heavy lifting or strenuous activities that worsen pain 2. Apply ice packs or heat to the affected area for 15 minutes at a time, alternating as needed 3. Continue gentle stretching exercises for sciatica as tolerated 4. Sleep with pillows positioned for comfort 5. Gradually increase activity as tolerated FOLLOW-UP: 1. Schedule an appointment with your primary care provider within 1 week 2. Your primary care provider may refer you for physical therapy and/or an MRI of your lumbar spine RETURN TO THE EMERGENCY DEPARTMENT IMMEDIATELY IF YOU EXPERIENCE: 1. Sudden worsening of pain that is not relieved by medication 2. New weakness in your legs or inability to walk 3. Loss of bladder or bowel control 4. Numbness in the groin or rectal area (saddle anesthesia) 5. Fever or chills If you have any questions or concerns, please contact your primary care provider or return to the Emergency Department. Print Language: Nauruan Coding Level of Care Code ED [employer] Manager for Hermila Alvarez
[2025-03-14] MEDS: orphenadrine 30 mg/mL Inj 2 mL 60 MG IM (21:50)
[2025-03-14 21:57] VITALS: BP 189/110; PULSE 86; RESP 20; O2SAT 96
== END 2025-03-14 21:58 | disposition home or self-care (01) ==
PROVIDERS: Emergency Provider Student in an Organized Health Care Education/Training Program; PCP Family Medicine
DX: M54.31 Sciatica, right side (principal); I10 Essential (primary) hypertension
CPT/HCPCS: 96372; 99284; J1100; J1885; J2360